=== PATIENT | male | born 1985 | race Caucasian/White ===

== ENCOUNTER 2018-08-08 13:04 | Emergency (ER) | payer SELFPAY ==
--- NOTE | 2018-08-08 14:33 | ER Document Report ---
ED Medical Screen (RME) - General Chief Complaint: Chest Pain Stated Complaint: CHEST PAIN Time Seen by Provider: 08/08/18 14:21 Notes: Patient is a 32-year-old male that presents to the emergency department for chief complaint of chest pain. Patient reports having pain is worse with taking a deep breath, radiation to the left chest, arm and jaw. At home he felt like he was going to pass out, and felt rather lightheaded, and that when he decided come to the ED. He states he is felt "off" over the past few months. He has a significant family history for early coronary disease, he also is a former smoker, quitting only recently ROS: Other than noted above, the 12 point review of systems was reviewed with the patient and were negative, all pertinent findings are included in the HPI. PHYSICAL EXAMINATION: Vital signs reviewed. GENERAL: Well-appearing, well-nourished and in no acute distress. HEAD: Atraumatic, normocephalic. EYES: Pupils equal round extraocular movements intact, conjunctiva are normal. ENT: Nares patent NECK: Normal range of motion CV: Heart rate borderline tachycardic, regular rhythm. LUNGS: No respiratory distress Musculoskeletal: Normal range of motion NEUROLOGICAL: Normal speech PSYCH: patient appears rather anxious on exam. MDM: Patient seen and examined for rapid initial assessment. Vital signs reviewed. EKG reviewed, demonstrated frequent PVCs. A comprehensive ED assessment and evaluation of the patient, analysis of test results and completion of the medical decision making process will be conducted by additional ED providers. *Note is created using voice recognition software and may contain spelling, syntax or grammatical errors. TRAVEL OUTSIDE OF THE [place] IN LAST 30 DAYS: No - Related Data Allergies/Adverse Reactions: No Known Allergies Allergy (Verified 08/08/18 13:08) Past Medical History - Social History Chew tobacco use (# tins/day): No Frequency of alcohol use: None Drug Abuse: None Renal/ Medical History: Denies: Hx Peritoneal Dialysis - Immunizations Hx Diphtheria, Pertussis, Tetanus Vaccination: Yes - unknown Physical Exam - Vital signs Vitals: Temp Pulse Resp BP Pulse Ox 98.8 F 105 H 16 167/109 H 100 08/08/18 13:42 08/08/18 13:42 08/08/18 13:42 08/08/18 13:42 08/08/18 13:42 Course - Vital Signs Vital signs: Temp Pulse Resp BP Pulse Ox 98.8 F 105 H 16 167/109 H 100 08/08/18 13:42 08/08/18 13:42 08/08/18 13:42 08/08/18 13:42 08/08/18 13:42
[2018-08-08 15:16] LABS: ABSOLUTE LYMPHOCYTES (AUTO) 1.4 10^3/uL (0.5-4.7); ABSOLUTE MONOCYTES (AUTO) 0.3 10^3/uL (0.1-1.4); ABSOLUTE NEUT (AUTO) 7.4 10^3/uL (1.7-8.2); BASOPHILS % (AUTO) 0.4 % (0-2); EOSINOPHILS % (AUTO) 0.3 % (0-6); HEMATOCRIT 47.6 % (37.9-51.0); HEMOGLOBIN 16.7 g/dL (13.5-17.0); LYMPHOCYTES % (AUTO) 14.9 % (13-45); MEAN CORPUSCULAR HEMOGLOBIN 31.7 pg (27.0-33.4); MEAN CORPUSCULAR HGB CONC 35.2 g/dL (32.0-36.0); MEAN CORPUSCULAR VOLUME 90 fl (80-97); PLATELET COUNT 182 10^3/uL (150-450); RED BLOOD COUNT 5.28 10^6/uL (4.35-5.55); RED CELL DISTRIBUTION WIDTH 13.7 % (11.5-14.0); SEGMENTED NEUTROPHILS % (AUTO) 81.4 % (42-78); TOTAL CELLS COUNTED % (AUTO) 100 %; WHITE BLOOD COUNT 9.1 10^3/uL (4.0-10.5)
[2018-08-08 15:33] LABS: INTERNATIONAL RATION (INR) 0.99; PROTHROMBIN TIME 13.6 SEC (11.4-15.4)
[2018-08-08 15:34] LABS: ALANINE AMINOTRANSFERASE 30 U/L (21-72); ALBUMIN 5.4 g/dL (3.5-5.0); ALKALINE PHOSPHATASE 83 U/L (38-126); ANION GAP 14 (5-19); ASPARTATE AMINO TRANSFERASE 29 U/L (17-59); BILIRUBIN,DIRECT 0.2 mg/dL (0.0-0.4); BILIRUBIN,TOTAL 0.6 mg/dL (0.2-1.3); BLOOD UREA NITROGEN 10 mg/dL (7-20); CALCIUM 10.3 mg/dL (8.4-10.2); CARBON DIOXIDE 28 mmol/L (22-30); CHLORIDE 100 mmol/L (98-107); GLUCOSE 111 mg/dL (75-110); POTASSIUM 4.8 mmol/L (3.6-5.0); SODIUM 141.7 mmol/L (137-145); TOTAL PROTEIN 8.4 g/dL (6.3-8.2)
--- NOTE | 2018-08-08 16:59 | RADIOLOGY REPORT (SQ) ---
EXAM DESCRIPTION: CTA CHEST COMPLETED DATE/TIME: 08/08/2018 4:41 pm REASON FOR STUDY: pleuritic chest pain, tachycardia COMPARISON: None. TECHNIQUE: CT scan of the chest performed using helical scanning technique with dynamic intravenous contrast injection. Images reviewed with lung, soft tissue and bone windows. Reconstructed coronal and sagittal MPR images reviewed. Additional 3 dimensional post-processing performed to develop Maximal Intensity Projection images (NC P). All images stored on PACS. All CT scanners at this facility use dose modulation, iterative reconstruction, and/or weight based d osing when appropriate to reduce radiation dose to as low as reasonably achievable (ALARA). [facility]: Dose Right [facility]: CareDose [facility]: Dose Right [facility]: Teradose 4D [facility]: H.BLOOM CONTRAST TYPE AND DOSE: contrast/concentration: Isovue 350.00 mg/ml; Total Contrast Delivered: 80.0 ml; Total Saline Delivered: 110.0 ml Contrast bolus adequate for pulmonary arteries and aorta. RENAL FUNCTION: GFR > 60. RADIATION DOSE: . LIMITATIONS: None. FINDINGS: LUNGS AND PLEURA: No masses, infiltrates, or pneumothorax. No pleural effusions or pleura l calcifications. AORTA AND GREAT VESSELS: No aneurysm. No dissection. HEART: No pericardial effusion. No significant coronary artery calcifications. PULMONARY ARTERIES: No emboli visualized in the main pulmonary arteries or the segmental branches. HILAR AND MEDIASTINAL STRUCTURES: No identified masses or abnormal nodes. HARDWARE: None in the chest. UPPER ABDOMEN: No significant findings. Limited exam. THYROID AND OTHER SOFT TISSUES: No masses. No adenopathy. BONES: No acute or significant finding. 3D MIPS: Confirm above findings. OTHER: No other significant finding. IMPRESSION: NORMAL CTA OF THE CHEST. NO PULMONARY EMBOLI. COMMENT: Quality ID # [id number]: Final reports with documentation of one or more dose reduction techniques (e.g., Automated exposure control, adjustment of the mA and/or kV according to patient size, use of iterative reconstruction technique) TECHNICAL DOCUMENTATION: JOB ID: [id number] [employer]- All Rights Reserved Reading location - IP/workstation name: [email or web address]
[2018-08-08 17:51] LABS: URINE AMPHETAMINES SCREEN NEGATIVE; URINE BARBITURATES SCREEN NEGATIVE; URINE BENZODIAZEPINES SCREEN NEGATIVE; URINE COCAINE SCREEN NEGATIVE; URINE MARIJUANA (THC) SCREEN NEGATIVE; URINE METHADONE SCREEN NEGATIVE; URINE PHENCYCLIDINE SCREEN NEGATIVE
--- NOTE | 2018-08-08 20:40 | ER Document Report ---
ED Cardiac - General Chief Complaint: Chest Pain Stated Complaint: CHEST PAIN Time Seen by Provider: 08/08/18 20:40 Mode of Arrival: Ambulatory Information source: Patient, Relative Notes: HISTORY OF PRESENT ILLNESS: Patient is a 32-year-old male with no significant past medical history who p resents with chest pain that begins on the left side and goes to his left shoulder that is sharp in origin "like a knife." Location: Middle of the chest toward the left armpit Onset: Sudden Alleviation: "It is basically resolved since have been waiting here" Provocation: Unknown Quality: "Sharp like a stab" Radiation: Left shoulder, left underarm Severity: "Severe when it first happened, but is gone now" Timing: One episode that is resolved History of CAD: No Associated symptoms: No shortness of breath, no fevers or chills, nausea but no vomiting REVIEW OF SYSTEMS: CONSTITUTIONAL : Denies fever or chills, no sweats. Denies recent illness. EENT: Denies eye, ear, throat, or mouth pain or symptoms. Denies nasal or sinus congestion. CARDIOVASCULAR: Positive for chest pain. Denies swelling of the legs. RESPIRATORY: Denies cough, cold, or chest congestion. Denies shortness of breath or difficulty breathing. Denies wheezing. GASTROINTESTINAL: Denies abdominal pain. Denies nausea, vomiting, or diarrhea. Denies constipation. GENITOURINARY: Denies difficulty urinating, painful urination, burning, frequency, or blood in urine. MUSCULOSKELETAL: Denies neck or back pain or joint pain or swelling. SKIN: Denies rash or skin lesions. HEMATOLOGIC : Denies easy bruising or bleeding. LYMPHATIC: Denies swollen, enlarged glands. NEUROLOGICAL: Denies altered mental status or loss of consciousness. Denies headache. Denies weakness or paralysis or loss of use of either side. Denies problems with gait or speech. Denies sensory or motor loss. PSYCHIATRIC: Denies anxiety or stress or depression. All other systems reviewed and negative. PHYSICAL EXAMINATION: GENERAL: Well-appearing, well-nourished and in no acute distress. HEAD: Atraumatic, normocephalic. No scalp deformity, depression, or crepitance. EYES: Pupils are 3 mm and equal/round/reactive to light, extraocular movements intact, sclera anicteric, conjunctiva are normal. ENT: Nares patent bilaterally, oropharynx. Moist mucous membranes. No tonsil hypertrophy. NECK: Normal range of motion, supple without lymphadenopathy. LUNGS: Breath sounds present, equal, and clear to auscultation bilaterally. No wheezes, rales, or rhonchi. HEART: Regular rate and rhythm without murmurs, rubs, or gallops. 2+ peripheral pulses. Normal capillary refill. ABDOMEN: Soft, nontender, nondistended. Normoactive bowel sounds. No guarding, no rebound. No masses appreciated. BACK: Normal contour, no midline tenderness. Rectal exam deferred. GENITAL/PELVIC: Deferred. EXTREMITIES: Normal range of motion, no pitting or edema. No cyanosis. NEUROLOGICAL: No focal neurological deficits. Moves all extremities spontane ously and on command. PSYCH: Normal mood, normal affect. No suicidal thoughts/ideations. No homoci tyler thoughts/ideations. No hallucinations. SKIN: Warm, dry, normal turgor, no rashes or lesions noted. ASSESSMENT AND PLAN: This patient is a 32-year-old male who presents with chest pain that likely represents noncardiac etiology. Patient had full workup prior to our encounter, including 2- sets of cardiac enzymes as well as CT scan of the chest that was negative for pulmonary embolism. 1. Will discharge home with return precautions and follow-up with his primary physician. 2. But the patient and his father at bedside voiced both understanding and agreeing with the plan. TRAVEL OUTSIDE OF THE [place] IN LAST 30 DAYS: No - Related Data Allergies/Adverse Reactions: No Known Allergies Allergy (Verified 08/08/18 13:08) Past Medical History - General Information source: Patient - Social History Smoking Status: Former Smoker Chew tobacco use (# tins/day): No Frequency of alcohol use: None Drug Abuse: None Lives with: Family Family History: Reviewed & Not Pertinent Patient has suicidal ideation: No Patient has homicidal ideation: No - Medical History Medical History: Negative - Past Medical History Cardiac Medical History: Reports: None Pulmonary Medical History: Reports: None EENT Medical History: Reports: None Neurological Medical History: Reports: None Endocrine Medical History: Reports: None Renal/ Medical History: Reports: None. Denies: Hx Peritoneal Dialysis Malignancy Medical History: Reports None GI Medical History: Reports: None Musculoskeletal Medical History: Reports None Skin Medical History: Reports None Psychiatric Medical History: Reports: None Traumatic Medical History: Reports: None Infectious Medical History: Reports: None Surgical Hx: Negative Past Surgical History: Reports: None - Immunizations Immunizations up to date: Yes Hx Diphtheria, Pertussis, Tetanus Vaccination: Yes - unknown History of Influenza Vaccine for 04/2017 - 08/2017 Season: Unknown Physical Exam - Vital signs Vitals: Temp Pulse Resp BP Pulse Ox 98.8 F 105 H 16 167/109 H 100 08/08/18 13:42 08/08/18 13:42 08/08/18 13:42 08/08/18 13:42 08/08/18 13:42 Course - Re-evaluation Re-evalutation: 08/08/18 21:47 Blood work, including 2 sets of cardiac enzymes, are negative. CT scan of the chest shows no evidence of acute pulmonary embolism. Most likely etiology of symptoms is noncardiac, question costochondritis versus peripheral neuropathy. Patient will be discharged home with return precautions and follow-up as needed. But the patient and his father at bedside voiced understanding and agreeing with the plan. - Vital Signs Vital signs: Temp Pulse Resp BP Pulse Ox 99.3 F 91 16 134/90 H 100 08/08/18 21:44 08/08/18 21:44 08/08/18 21:44 08/08/18 21:44 08/08/18 21:44 - Laboratory Result Diagrams: 08/08/18 15:02 08/08/18 15:02 Laboratory results interpreted by me: 08/08/18 08/08/18 15:02 15:02 Seg Neutrophils % 81.4 H Glucose 111 H Calcium 10.3 H Total Protein 8.4 H Albumin 5.4 H - Diagnostic Test Radiology reviewed: Image reviewed, Reports reviewed - EKG Interpretation by Me EKG shows normal: Sinus rhythm Rate: Normal Rhythm: NSR [place]/QRS: No: Right axis deviation, Left axis deviation, RBBB, LBBB, IVCD, LAHB/LAFB, LPHB/LPFB, Bifasicular block Voltage: No: Increased voltage, Consistant with LVH, Decreased voltage, Throughout, Limb leads P Waves: No: GUALBERTO, LAE, Absent, AV Dissociation, Other Heart block present: No: 1st Degree, Mobitz 1, Mobitz 2, CHB (3rd degree block) When compared to previous EKG there are: No significant change Discharge - Discharge Clinical Impression: Non-cardiac chest pain Condition: Good Disposition: HOME, SELF-CARE Instructions: Chest Pain of Unclear Cause ([facility]), Family Physicians / Practices Additional Instructions: You have been evaluated in the Emergency Department for chest pain. All of your blood work, including heart numbers, are normal. A CT scan of your chest showed no evidence of concerning injury to your lungs or your heart. Please follow-up with your primary physician as instructed in 1-2 weeks to establish care with a primary provider. Return to the Emergency Department if you experience worsening or recurrent chest pain, difficulty breathing, or any other concerning symptoms. Prescriptions: Diclofenac Sodium 75 mg PO BID #30 tablet. Print Language: Thai
[2018-08-08 21:45] VITALS: BP 134/90
--- NOTE | 2018-08-10 13:59 | EKG REPORT ---
SEVERITY:- ABNORMAL ECG - SINUS RHYTHM MULTIPLE VENTRICULAR PREMATURE COMPLEXES PROBABLE LEFT VENTRICULAR HYPERTROPHY BORDERLINE T ABNORMALITIES, INFERIOR LEADS : Confirmed by: Barak Mcdonald 10-Aug-2018 13:58:29
== END 2018-08-08 22:05 | disposition home or self-care (01) ==
LOC: ER 13:04
DX: R07.89 Other chest pain (principal); M25.512 Pain in left shoulder; Z87.891 Personal history of nicotine dependence
CPT/HCPCS: 36415; 71275; 80053; 80307; 84484; 85025; 85610; 93005; 93010; 99285

== ENCOUNTER 2018-09-05 14:02 | Emergency (ER) | payer OTHER ==
--- NOTE | 2018-09-05 14:36 | ER Document Report ---
ED General - General Chief Complaint: Shortness Of Breath Stated Complaint: SHORTNESS OF BREATH Time Seen by Provider: 09/05/18 14:22 Notes: 32-year-old male to the emergency department chief complaint of sore throat, intermittent fever, cough and generally not feeling well. Patient was seen here a week ago. Started on metoprolol. States that since that time he feels like he is having an allergic reaction. States that his throat gets swollen, he still has some chest pain and generally does not feel well. Cough TRAVEL OUTSIDE OF THE [place] IN LAST 30 DAYS: No - HPI Onset: Last week Onset/Duration: Gradual, Waxing and waning Quality of pain: Achy Severity: Mild Pain Level: 1 Associated symptoms: Chills, Fever - Related Data Allergies/Adverse Reactions: No Known Allergies Allergy (Verified 09/05/18 14:02) Past Medical History - General Information source: Patient - Social History Smoking Status: Smoker,Current Status Unk Frequency of alcohol use: None Drug Abuse: None Lives with: Family Family History: Reviewed & Not Pertinent Patient has suicidal ideation: No Patient has homicidal ideation: No - Medical History Medical History: Negative Renal/ Medical History: Denies: Hx Peritoneal Dialysis - Immunizations Immunizations up to date: Yes Hx Diphtheria, Pertussis, Tetanus Vaccination: Yes - unknown Review of Systems - Review of Systems Notes: Constitutional: denies: Chills, Diaphoresis, +Fever, Malaise, Weakness EENT: denies: Eye discharge, Blurred vision, Tearing, Double vision, Nose congestion, Nose discharge, +Throat swelling Cardiovascular: denies: Palpitations, Heart racing, Orthopnea, Dyspnea, +Chest pain Respiratory: Cough, chest pain, shortness of breath Gastrointestinal: denies: Abdominal pain, Diarrhea, Nausea, Vomiting, Black stools, bright red blood in stool Genitourinary: denies: Burning, Dysuria, Discharge, Frequency, Flank pain, Hematuria Musculoskeletal: denies: Joint pain, Joint swelling, Muscle pain, Muscle stiffness, back pain Hematologic/Lymphatic: denies: Anemia, Easy bleeding, Easy bruising, Blood clots Neurological/Psychological: denies: Confusion, Dementia, Depression, Loss of consciousness Skin: No lesions, no masses, no skin breakdown, no abscesses Physical Exam - Vital signs Vitals: Temp Pulse Resp BP Pulse Ox 99.9 F 56 L 16 141/87 H 100 09/05/18 14:15 09/05/18 14:15 09/05/18 14:15 09/05/18 14:15 09/05/18 14:15 Interpretation: Normal - General General appearance: Appears well, Alert - HEENT Head: Normocephalic, Atraumatic Eyes: Normal Pupils: PERRL Nasal: Normal Mouth/Lips: No: Angioedema Pharynx: Erythema Neck: Normal - Respiratory Respiratory status: No respiratory distress Chest status: Nontender Breath sounds: Normal Chest palpation: Normal - Cardiovascular Rhythm: Regular, Other - A few PVCs Heart sounds: Normal auscultation Murmur: No - Abdominal Inspection: Normal Distension: No distension Bowel sounds: Normal Tenderness: Nontender Organomegaly: No organomegaly - Back Back: Normal, Nontender - Extremities General upper extremity: Normal inspection, Nontender, Normal color, Normal ROM, Normal temperature General lower extremity: Normal inspection, Nontender, Normal color, Normal ROM, Normal temperature, Normal weight bearing. No: Tiffanie's sign - Neurological Neuro grossly intact: Yes Cognition: Normal Orientation: AAOx4 [place] Coma Scale Eye Opening: Spontaneous [place] Coma Scale Verbal: Oriented [place] Coma Scale Motor: Obeys Commands [place] Coma Scale Total: 15 Speech: Normal Motor strength normal: LUE, RUE, LLE, RLE Sensory: Normal - Psychological Associated symptoms: Normal affect, Normal mood - Skin Skin Temperature: Warm Skin Moisture: Dry Skin Color: Normal Course - Re-evaluation Re-evalutation: 09/05/18 15:19 Chest X-Ray 09/05/18 14:36 IMPRESSION: 1. No significant interval changes since the previous examination dated 02/03/2016. No acute findings. EKG is unremarkable. Rapid strep was negative. Based on the symptoms he is having I am recommending that he stop the metoprolol. This could be causing a mild allergic reaction. Might want to try him on some losartan at this time and some propranolol to help with the palpitations. I do not feel that he has a pneumonia past however I have recommended that if his symptoms persist he should be re-seen as he could be developing pneumonia. Patient seems comfortable with this plan. Will discharge at this time in stable condition. 09/05/18 15:21 Laboratory 09/05/18 14:33 Group A Strep Rapid NEGATIVE - Vital Signs Vital signs: Temp Pulse Resp BP Pulse Ox 99.9 F 56 L 16 141/87 H 100 09/05/18 14:15 09/05/18 14:15 09/05/18 14:15 09/05/18 14:15 09/05/18 14:15 - EKG Interpretation by Me EKG shows normal: Sinus rhythm, [place], Intervals, QRS Complexes, ST-T Waves Rhythm: PVC's Discharge - Discharge Clinical Impression: Premature ventricular contractions Hypertension Qualifiers: Hypertension type: unspecified Qualified Code(s): I10 - Essential (primary) hypertension Condition: Good Disposition: HOME, SELF-CARE Instructions: High Blood Pressure ([facility]), PVCs ([facility]) Additional Instructions: Go ahead and stop the metoprolol tartrate and begin losartan and propranolol. In the event that your symptoms persist or they are getting worse you probably need to be rechecked. If you develop worsening fever, chills, sweats, worsening chest pain or other concerns please be reevaluated. Prescriptions: Losartan Potassium [Cozaar 25 mg Tablet] 25 mg PO DAILY 30 Days #30 tablet Propranolol HCl [Inderal 20 mg Tablet] 20 mg PO Q12 30 Days #60 tab Referrals: SARAH MCCRAY MD [ACTIVE STAFF] - Follow up as needed
--- NOTE | 2018-09-05 14:55 | RADIOLOGY REPORT (SQ) ---
EXAM DESCRIPTION: CHEST 2 VIEWS COMPLETED DATE/TIME: 09/05/2018 2:47 pm REASON FOR STUDY: chest pain COMPARISON: 02/03/2016 EXAM PARAMETERS: NUMBER OF VIEWS: two views TECHNIQUE: Digital Frontal and Lateral radiographic views of the chest acquired. RADIATION DOSE: NA LIMITATIONS: none FINDINGS: LUNGS AND PLEURA: No opacities, masses or pneumothorax. No pleural effusion. MEDIASTINUM AND HILAR STRUCTURES: No masses or contour abnormalities. HEART AND VASCULAR STRUCTURES: Heart normal size. No evidence for failure. BONES: No acute findings. HARDWARE: None in the chest. OTHER: No other significant finding. IMPRESSION: 1. No significant interval changes since the previous examination dated 02/03/2016. No a cute findings. TECHNICAL DOCUMENTATION: JOB ID: [id number] [employer]- All Rights Reserved Reading location - IP/workstation name: [email or web address]
[2018-09-05 15:19] VITALS: BP 140/87
--- NOTE | 2018-09-05 19:18 | EKG REPORT ---
SEVERITY:- ABNORMAL ECG - SINUS RHYTHM MULTIFORM VENTRICULAR PREMATURE COMPLEXES PROBABLE LEFT VENTRICULAR HYPERTROPHY : Confirmed by: Obdulia Limon MD 05-Sep-2018 19:16:54
== END 2018-09-05 15:18 | disposition home or self-care (01) ==
LOC: ER 14:02
DX: I49.3 Ventricular premature depolarization (principal); I10 Essential (primary) hypertension; J02.9 Acute pharyngitis, unspecified; R50.9 Fever, unspecified; R05 Cough; R07.9 Chest pain, unspecified; R06.02 Shortness of breath
CPT/HCPCS: 71046; 87070; 87880; 93005; 93010; 99284

== ENCOUNTER → 2018-09-06 | Outpatient (CLI) | payer OTHER ==
[2018-09-06 10:47] LABS: HEMOGLOBIN 16.3 g/dL (13.5-17.0); MEAN CORPUSCULAR HEMOGLOBIN 31.5 pg (27.0-33.4); MEAN CORPUSCULAR HGB CONC 35.4 g/dL (32.0-36.0); MEAN CORPUSCULAR VOLUME 89 fl (80-97); PLATELET COUNT 152 10^3/uL (150-450); RED BLOOD COUNT 5.18 10^6/uL (4.35-5.55); RED CELL DISTRIBUTION WIDTH 13.1 % (11.5-14.0); WHITE BLOOD COUNT 7.2 10^3/uL (4.0-10.5)
[2018-09-06 11:18] LABS: ALANINE AMINOTRANSFERASE 58 U/L (21-72); ALBUMIN 5.3 g/dL (3.5-5.0); ALKALINE PHOSPHATASE 72 U/L (38-126); ANION GAP 12 (5-19); ASPARTATE AMINO TRANSFERASE 38 U/L (17-59); BILIRUBIN,DIRECT 0.1 mg/dL (0.0-0.4); BILIRUBIN,TOTAL 0.6 mg/dL (0.2-1.3); BLOOD UREA NITROGEN 19 mg/dL (7-20); CALCIUM 10.1 mg/dL (8.4-10.2); CARBON DIOXIDE 31 mmol/L (22-30); CHLORIDE 100 mmol/L (98-107); GLUCOSE 97 mg/dL (75-110); POTASSIUM 4.8 mmol/L (3.6-5.0); SODIUM 143.4 mmol/L (137-145); TOTAL PROTEIN 8.3 g/dL (6.3-8.2)
== END ==
LOC: OD 10:00
DX: Z00.00 Encounter for general adult medical examination without abnormal findings (principal); Z13.9 Encounter for screening, unspecified
CPT/HCPCS: 36415; 80053; 83036; 84443; 85027

== ENCOUNTER → 2018-09-11 | Outpatient (CLI) | payer OTHER ==
--- NOTE | 2018-09-11 13:46 | RADIOLOGY REPORT (SQ) ---
EXAM DESCRIPTION: CAROTID DOPPLER COMPLETED DATE/TIME: 09/11/2018 1:31 pm REASON FOR STUDY: AMAUROSIS FUGAX G45.3 AMAUROSIS FUGAX COMPARISON: None. TECHNIQUE: Grayscale ultrasound, Doppler velocity and spectra, and color Doppler images acquired of the extra-cranial carotid and vertebral arteries. Images stored on PACS. LIMITATIONS: None. FINDINGS: RIGHT CAROTID CCA Velocities: Within normal limits. ICA Velocities Peak systolic 121 cm/s. End diastolic 33 cm/s. Proximal ICA/CCA peak systolic ratio 0.97. Spectra normal. No significant plaque. LEFT CAROTID CCA Velocities: Within normal limits. ICA Velocities Peak systolic 60 cm/s. End diastolic 28 cm/s. Proximal ICA/CCA peak systolic ratio 0.56. Spectra normal. No significant plaque. VERTEBRAL ARTERIES: Antegrade flow. Normal waveforms. SUBCLAVIAN ARTERIES: No finding. OTHER: No other significant finding. IMPRESSION: NO HEMODYNAMICALLY SIGNIFICANT STENOSIS. COMMENT: Quality ID #[id number]: Velocity criteria are extrapolated from the diameter data as defined by t he Society of Radiologists in Ultrasound Consensus Conference. Radiology 2003: 229; 340-346. TECHNICAL DOCUMENTATION: JOB ID: [id number] [employer]- All Rights Reserved Reading location - IP/workstation name: [email or web address]
== END ==
LOC: SP 16:18
DX: G45.3 Amaurosis fugax (principal); R55 Syncope and collapse
CPT/HCPCS: 93880

== ENCOUNTER → 2019-04-22 | Outpatient (CLI) | payer MEDICAID ==
--- NOTE | 2019-04-22 20:26 | RADIOLOGY REPORT (SQ) ---
EXAM DESCRIPTION: XR SHOULDER 2 OR MORE VIEWS COMPLETED DATE/TME: 04/22/2019 18:16 CLINICAL HISTORY: 33 years, Male, S49.91XA UNSP INJURY OF RIGHT SHOULDER AND UPPER ARM, INIT ENCNTR COMPARISON: None. NUMBER OF VIEWS: Three TECHNIQUE: Internal/external and transscapular Y projections were acquired. LIMITATIONS: None. FINDINGS: Visualized osseous structures are normal in appearance. Joint spaces are well-maintained. No acute fracture or dislocation is evident. IMPRESSION: No acute osseous anomaly. copyright 2010 [employer]- All Rights Reserved
== END ==
LOC: RAD 18:12
PROVIDERS: ATTEND Nurse Practitioner Acute Care
DX: S49.91XA Unspecified injury of right shoulder and upper arm, initial encounter (principal); X58.XXXA Exposure to other specified factors, initial encounter; Y93.9 Activity, unspecified; Y92.9 Unspecified place or not applicable

== ENCOUNTER 2020-04-06 12:07 | Emergency (ER) | payer SELFPAY ==
--- NOTE | 2020-04-06 12:40 | ER Document Report ---
ED Medical Screen (RME) - General Chief Complaint: Arm Injury Stated Complaint: ARM INJURY Time Seen by Provider: 04/06/20 12:30 Mode of Arrival: Ambulatory Information source: Patient Notes: 34-year-old male presented to ED for complaint of severe pain to the left arm above and below the elbow. He states that 3 days ago he got his compound bow and it was supposed to be all put together but it was not. He states he tried to put it together instead of waiting for someone to put it together for him and the string jumped off injuring his arm he said it was corner about 400 miles an hour according to what he is ready wanted. He does have very swollen ecchymotic type muscles above and below the elbow. He states he came to the ED because he was becoming very concerned when he started getting numbness and decreased movement to the area. I have ordered x-ray and blood work and spoken with and the charge nurse concerning the injury. I have greeted and performed a rapid initial assessment of this patient. A comprehensive ED assessment and evaluation of the patient, analysis of test results and completion of medical decision making process will be conducted by an additional ED providers. TRAVEL OUTSIDE OF THE [place] IN LAST 30 DAYS: No - Related Data Allergies/Adverse Reactions: No Known Allergies Allergy (Verified 09/05/18 14:02) Past Medical History Renal/ Medical History: Denies: Hx Peritoneal Dialysis - Immunizations Immunizations up to date: Yes Hx Diphtheria, Pertussis, Tetanus Vaccination: Yes - unknown Physical Exam - Vital signs Vitals: Temp Pulse Resp BP Pulse Ox 99.1 F 76 18 179/106 H 100 04/06/20 12:04/06/20 12:04/06/20 12:04/06/20 12:04/06/20 12:19 Course - Vital Signs Vital signs: Temp Pulse Resp BP Pulse Ox 99.1 F 76 18 179/106 H 100 04/06/20 12:04/06/20 12:04/06/20 12:04/06/20 12:04/06/20 12:19
--- NOTE | 2020-04-06 13:11 | RADIOLOGY REPORT (SQ) ---
EXAM DESCRIPTION: FOREARM LEFT COMPLETED DATE/TIME: 04/06/2020 1:03 pm REASON FOR STUDY: Pain injury 3 days ago with compound bow COMPARISON: None. NUMBER OF VIEWS: Two views. TECHNIQUE: Two radiographic images acquired of the left forearm, including elbow and wrist in at ch[address]idy st one projection. LIMITATIONS: None. FINDINGS: MINERALIZATION: Normal. BONES: No acute fracture. No worrisome bone lesions. SOFT TISSUES: No obvious swelling or foreign body. OTHER: No other significant finding. IMPRESSION: NEGATIVE STUDY OF THE LEFT FOREARM. NO RADIOGRAPHIC EVIDENCE OF ACUTE INJURY. TECHNICAL DOCUMENTATION: JOB ID: [id number] 2010 [employer]- All Rights Reserved Reading location - IP/workstation name: [email or web address]
--- NOTE | 2020-04-06 13:12 | RADIOLOGY REPORT (SQ) ---
EXAM DESCRIPTION: ELBOW LEFT OVER 2 VIEWS IMAGES COMPLETED DATE/TIME: 04/06/2020 1:03 pm REASON FOR STUDY: Pain injury 3 days ago with compound bow COMPARISON: None. NUMBER OF VIEWS: Four views. TECHNIQUE: AP, lateral, and both oblique radiographic images acquired of the left elbow. LIMITATIONS: None. FINDINGS: MINERALIZATION: Normal. BONES: No acute fracture or dislocation. No worrisome bone lesions. JOINT: No effusion. SOFT TISSUES: Soft tissue swelling about the proximal forearm and elbow. OTHER: No other significant finding. IMPRESSION: Soft tissue swelling about the proximal forearm and elbow. No evidence of acute bony ab normality. No radiopaque foreign body. TECHNICAL DOCUMENTATION: JOB ID: [id number] 2010 [employer]- All Rights Reserved Reading location - IP/workstation name: [email or web address]
--- NOTE | 2020-04-06 13:12 | RADIOLOGY REPORT (SQ) ---
EXAM DESCRIPTION: HUMERUS LEFT IMAGES COMPLETED DATE/TIME: 04/06/2020 1:03 pm REASON FOR STUDY: Pain injury 3 days ago with compound bow COMPARISON: None. NUMBER OF VIEWS: Two views. TECHNIQUE: Two radiographic images were acquired of the left humerus to include elbow and shoulder i n at least one projection. LIMITATIONS: None. FINDINGS: MINERALIZATION: Normal. BONES: No acute fracture or dislocation. No worrisome bone lesions. SOFT TISSUES: Soft tissue swelling about the forearm and elbow. No radiopaque foreign body. OTHER: No other significant finding. IMPRESSION: No evidence of acute bony abnormality of the left humerus. No radiopaque foreign body. TECHNICAL DOCUMENTATION: JOB ID: [id number] 2010 [employer]- All Rights Reserved Reading location - IP/workstation name: [email or web address]
[2020-04-06 13:24] LABS: ABSOLUTE BASOPHILS # (AUTO) 0.1 10^3/uL (0.0-0.2); ABSOLUTE EOSINOPHILS # (AUTO) 0.1 10^3/uL (0.0-0.6); ABSOLUTE LYMPHOCYTES (AUTO) 1.9 10^3/uL (0.5-4.7); ABSOLUTE MONOCYTES (AUTO) 0.3 10^3/uL (0.1-1.4); ABSOLUTE NEUT (AUTO) 7.9 10^3/uL (1.7-8.2); BASOPHILS % (AUTO) 0.7 % (0-2); EOSINOPHILS % (AUTO) 0.9 % (0-6); HEMOGLOBIN 16.5 g/dL (13.5-17.0); LYMPHOCYTES % (AUTO) 18.4 % (13-45); MEAN CORPUSCULAR HGB CONC 35.2 g/dL (32.0-36.0); MEAN CORPUSCULAR VOLUME 88 fl (80-97); MONOCYTES % (AUTO) 3.2 % (3-13); PLATELET COUNT 179 10^3/uL (150-450); RED BLOOD COUNT 5.33 10^6/uL (4.35-5.55); RED CELL DISTRIBUTION WIDTH 13.4 % (11.5-14.0); SEGMENTED NEUTROPHILS % (AUTO) 76.8 % (42-78); TOTAL CELLS COUNTED % (AUTO) 100 %; WHITE BLOOD COUNT 10.3 10^3/uL (4.0-10.5)
[2020-04-06 13:46] LABS: ALBUMIN 5.2 g/dL (3.5-5.0); ALKALINE PHOSPHATASE 84 U/L (38-126); ANION GAP 13 (5-19); ASPARTATE AMINO TRANSFERASE 32 U/L (17-59); BILIRUBIN,DIRECT 0.3 mg/dL (0.0-0.4); BILIRUBIN,TOTAL 0.7 mg/dL (0.2-1.3); BLOOD UREA NITROGEN 11 mg/dL (7-20); CARBON DIOXIDE 23 mmol/L (22-30); CHLORIDE 104 mmol/L (98-107); CREATINE KINASE 92 U/L (55-170); GLUCOSE 110 mg/dL (75-110); POTASSIUM 4.6 mmol/L (3.6-5.0); TOTAL PROTEIN 8.4 g/dL (6.3-8.2)
[2020-04-06] MEDS ORDERED: DIPH/PERTUSS(ACELL)/TETANUS VAC/PF 0.5 ML SYR (>=10YO) IM ONE (13:53)
[2020-04-06] MEDS ORDERED: MORPHINE SULFATE 10 MG/ML INJ IV ONE (13:53)
--- NOTE | 2020-04-06 14:19 | ER Document Report ---
ED Extremity Problem, Upper - General Chief Complaint: Arm Injury Stated Complaint: ARM INJURY Time Seen by Provider: 04/06/20 12:30 Primary Care Provider: [facility] [Provider Group] - Follow up as needed Mode of Arrival: Ambulatory Information source: Patient Notes: Patient states he was attempting to use a new compound bow. Patient states that he thought the compound though was properly assembled. Patient states that when he pulled back the line snapped on his left arm. Patient states injury occurred 3 days ago. Patient with left arm pain swelling and bruising. Patient is right-hand dominant. Patient reports that the pain has gradually been increasing since the initial injury. TRAVEL OUTSIDE OF THE [place] IN LAST 30 DAYS: No - HPI Patient complains to provider of: Pain, Swelling, Left, Arm Onset: Other - 3 days ago Where: Home Quality of pain: Achy Pain Level: 4 Associated symptoms: denies: Fever, Short of breath, Vomiting Exacerbated by: Movement Relieved by: Nothing Similar symptoms previously: No Recently seen / treated by doctor: No - Related Data Allergies/Adverse Reactions: No Known Allergies Allergy (Verified 09/05/18 14:02) Past Medical History - General Information source: Patient - Social History Smoking Status: Never Smoker Frequency of alcohol use: None Drug Abuse: None Occupation: None Family History: Reviewed & Not Pertinent - Medical History Medical History: Negative Renal/ Medical History: Denies: Hx Peritoneal Dialysis Surgical Hx: Negative - Immunizations Immunizations up to date: Yes Hx Diphtheria, Pertussis, Tetanus Vaccination: Yes - unknown Review of Systems - Review of Systems Constitutional: No symptoms reported. denies: Fever EENT: No symptoms reported Cardiovascular: No symptoms reported. denies: Chest pain Respiratory: No symptoms reported. denies: Cough, Short of breath Gastrointestinal: No symptoms reported. denies: Nausea, Vomiting Genitourinary: No symptoms reported Male Genitourinary: No symptoms reported Musculoskeletal: Muscle pain - Left upper arm, left forearm. denies: Back pain Skin: Change in color - Bruising to left upper extremity Hematologic/Lymphatic: No symptoms reported Neurological/Psychological: No symptoms reported Physical Exam - Vital signs Vitals: Temp Pulse Resp BP Pulse Ox 99.1 F 76 18 179/106 H 100 04/06/20 12:19 04/06/20 12:19 04/06/20 12:19 04/06/20 12:19 04/06/20 12:19 - General General appearance: Appears well, Alert In distress: None - HEENT Head: Normocephalic, Atraumatic Eyes: Normal Conjunctiva: Normal Nasal: Normal Mouth/Lips: Normal Mucous membranes: Normal Neck: Normal, Supple - Respiratory Respiratory status: No respiratory distress Chest status: Nontender Breath sounds: Normal. No: Rales, Rhonchi, Stridor, Wheezing Chest palpation: Normal - Cardiovascular Rhythm: Regular Heart sounds: S1 appreciated, S2 appreciated Pulses: Normal: Radial - Back Back: Normal, Nontender - Extremities General upper extremity: Tender - Upper extremity tenderness General lower extremity: Normal inspection, Normal ROM Shoulder: Normal, Nontender Arm: Tender - Distal third of left humerus, abrasion with ecchymosis to medial aspect of distal left humerus, Abrasion, Ecchymosis. No: Instability Elbow: Ecchymosis - Left arm. No: Joint effusion, Limited ROM Forearm: Tender, Ecchymosis - Tenderness, ecchymosis to proximal third of left forearm, soft muscle compartments - Neurological Neuro grossly intact: Yes Cognition: Normal Brooks Coma Scale Eye Opening: Spontaneous [place] Coma Scale Verbal: Oriented Brooks Coma Scale Motor: Obeys Commands [place] Coma Scale Total: 15 Notes: No radial, median or ulnar nerve deficit to left upper extremity - Psychological Associated symptoms: Normal affect, Normal mood - Skin Skin Temperature: Warm Skin Moisture: Dry Skin Color: Ecchymosis - Distal left humerus, proximal left forearm Course - Re-evaluation Re-evalutation: 04/06/20 Patient with swelling and ecchymosis to left upper arm and left forearm. Patient with full range of motion to the elbow joint shoulder and left wrist. No neurologic deficit. Patient with soft muscle compartments. Consulted with Dr. Rahman, Dr. Rahman to bedside for examination, agrees that there is no concern for compartment syndrome and is agreeable with discharge plan of care at this time. - Vital Signs Vital signs: Temp Pulse Resp BP Pulse Ox 98.8 F 69 20 176/100 H 100 04/06/20 14:37 04/06/20 14:37 04/06/20 14:37 04/06/20 14:37 04/06/20 14:37 - Laboratory Result Diagrams: 04/06/20 13:11 04/06/20 13:11 Laboratory results interpreted by me: 04/06/20 13:11 Total Protein 8.4 H Albumin 5.2 H 04/06/20 14:15 Labs- All tests 24 hr 04/06/20 04/06/20 13:11 13:11 WBC 10.3 RBC 5.33 Hgb 16.5 Hct 47.0 MCV 88 MCH 31.0 MCHC 35.2 RDW 13.4 Plt Count 179 Lymph % (Auto) 18.4 [place] % (Auto) 3.2 Eos % (Auto) 0.9 Baso % (Auto) 0.7 Absolute Neuts (auto) 7.9 Absolute Lymphs (auto) 1.9 Absolute Monos (auto) 0.3 Absolute Eos (auto) 0.1 Absolute Basos (auto) 0.1 Seg Neutrophils % 76.8 Sodium 140.2 Potassium 4.6 Chloride 104 Carbon Dioxide 23 Anion Gap 13 BUN 11 Creatinine 0.84 Est GFR ( Amer) > 60 Est GFR (MDRD) Non-Af > 60 Glucose 110 Calcium 10.0 Total Bilirubin 0.7 Direct Bilirubin 0.3 Neonat Total Bilirubin Not Reportable Neonat Direct Bilirubin Not Reportable Neonat Indirect Bili Not Reportable AST 32 ALT 33 Alkaline Phosphatase 84 Creatine Kinase 92 Total Protein 8.4 H Albumin 5.2 H - Diagnostic Test Radiology reviewed: Image reviewed, Reports reviewed Discharge - Discharge Clinical Impression: Left arm pain, Abrasion Contusion Qualifiers: Encounter type: initial encounter Contusion area: forearm Laterality: left Qualified Code(s): S50.12XA - Contusion of left forearm, initial encounter Condition: Stable Disposition: HOME, SELF-CARE Instructions: Abrasions ([facility]), Contusion ([facility]), Muscle Relaxers ([facility]), Muscle Strain ([facility]), Tetanus Immunization Given ([facility]) Additional Instructions: Return immediately for any new or worsening symptoms Followup with your primary care provider, call tomorrow to make a followup appointment Follow with orthopedics for any persistent pain or problems Prescriptions: Cyclobenzaprine HCl [Flexeril 10 Mg Tablet] 10 mg PO TID #15 tablet Referrals: [facility] [Provider Group] - Follow up as needed
[2020-04-06 14:40] VITALS: BP 176/100
== END 2020-04-06 14:52 | disposition home or self-care (01) ==
LOC: ER 12:07
DX: S50.12XA Contusion of left forearm, initial encounter (principal); S40.022A Contusion of left upper arm, initial encounter; S40.812A Abrasion of left upper arm, initial encounter; W20.8XXA Other cause of strike by thrown, projected or falling object, initial encounter; Y93.89 Activity, other specified; Y92.009 Unspecified place in unspecified non-institutional (private) residence as the place of occurrence of the external cause; Z23 Encounter for immunization
CPT/HCPCS: 99283; 90471; 36415; 82550; 85025; 80053; 73080; 73090; 73060; 90715; J2270